=== PATIENT | female | born 2000 | race Caucasian/White ===

== ENCOUNTER 2019-11-11 13:46 | Emergency (ER) | payer MEDICAID, SELFPAY ==
[2019-11-11 14:22] VITALS: BP 119/81; PULSE 102; RESP 20; TEMP 36.9; O2SAT 100; BMI 19.7
--- NOTE | 2019-11-11 14:31 | HMH.EDUTC ---
[facility] [place]: Strep throat Disposition: Home, Self-Care Condition on Discharge: Good Instructions: Strep Throat (Alternative Therapy), DI for Strep Throat, Amoxicillin Additional Instructions: *Monitor Temp, Over the counter Motrin or Tylenol as directed/as needed Tylenol every 4 hours and Motrin every 6 hours (as long as your family doctor has told you that you can take it) for fever or pain. and straight to ER if unable to lower temp less than 101.0 after medication given *Warm salt water gargles may help to soothe the throat *Throat Lozenges *Warm fluids like tea with honey may help to soothe the throat *Sleep elevated *Humidifier/Vaporizer *Flonase 2 sprays in each nostril daily but be aware that it may take 2-3 days before you notice improvement *Bromfed may cause drowsiness. Know how it effects you (your child) before driving, caring for small child, or sending your child to school. Not other antihistamines/allergy medications while taking bromfed Your throat swab was sent for culture. Those results are typically sent to your primary care. Be sure to follow up in 2-3 days with your family doctor/primary care physician if no improvement so they can review those result and treat if necessary. If you don?t have a primary care doctor, I recommend you get one but in the mean time, you will have to return to a walk in clinic *If you did not take Penicillin shot or was unable to, start taking antibiotic immediately and make sure that you take it for the FULL length of time although you should start to feel better in 24-48 hours *change toothbrush and toothpaste 24-48 hours after starting to take antibiotics so you do not reinfect yourself Monitor Temp. Tylenol and/or Ibuprofen as needed. ER if fever is no less than 101 despite alternating Tylenol and Ibuprofen * Encourage fluids, water, Gatorade, powerade, pedialyte if infant/toddler/or child *Cold fluids, popsicles and ice cream may feel good on his throat Follow up IMMEDIATELY for new or worsening symptoms or no Noticeable improvement over the next 48-72 hours. 911 for difficulty breathing or swallowing Prescriptions: Amoxicillin [Amoxicillin 500mg Cap] 500 mg PO BID 10 Days #20 cap Transmission Status: Received by [id number] Referrals: Karen Alicea APRN [Primary Care Provider] - As needed Time of Disposition: 14:40 Medical Decision Making - [place] Inquiry Pt receiving controlled substance: No Mroro was queried for this patient: No Vital Signs: 11/11/19 14:22 11/11/19 14:49 Temperature 98.4 F 98.4 F Temperature Source Oral Pulse Rate 102 H Pulse Rate [Right Brachial] 102 H Respiratory Rate 20 20 Blood Pressure 119/81 Blood Pressure [Right Arm] 119/81 Blood Pressure Mean [Right Arm] 93 Blood Pressure Source [Right Arm] Automatic Cuff Blood Pressure Position [Right Arm] Sitting 02 Sat by Pulse Oximetry 100 Oxygen Delivery Method Room Air - Lab Data Lab results reviewed: Yes: I reviewed the patient's lab results. Lab Results 11/11/19 14:22: Strep Scn Rapid Clinic Positive [place] [facility] [place] General Stated complaint: sore throat runny nose unable to eat wants covid t Time Seen by Provider: 11/11/19 14:31 Mode of Arrival: Ambulatory Source of Information: Patient Limitations: No Limitations Description of Symptoms (Recalled from Triage Doc. by RN): PATIENT C/O RUNNY NOSE, COUGH, SORE THROAT SINCE YESTERDAY HEENT Symptoms (Recalled from RN notes): Yes Resp Symptoms (Recalled from RN notes): Yes Skin Symptoms (Recalled from RN notes): No MS Symptoms (Recalled from RN notes): No Functional Status (Recalled from RN notes): WNL - History of Present Illness Provider Complaint: Patient states that she has been having nasal congestion, runny nose, sore throat and not feeling well and wanted to get tested for COVID 19 States that symptoms started yesterday and has continued to get worse - Related Data Home Me
[2019-11-11 14:49] VITALS: BP 119/81; PULSE 102; RESP 20; TEMP 36.9; O2SAT 100
[2019-11-11 15:31] LABS: UTC Strep Screen (Rapid) Positive (Negative)
== END 2019-11-11 14:56 | disposition home or self-care (01) ==
PROVIDERS: Emergency Provider Nurse Practitioner; PCP Nurse Practitioner Family
DX: J02.0 Streptococcal pharyngitis (principal); Z20.828 Contact with and (suspected) exposure to other viral communicable diseases
CPT/HCPCS: 87880; 99202; U0003

== ENCOUNTER → 2020-06-16 13:06 | Outpatient (CLI) | payer OTHER, SELFPAY | PROVIDERS: Visit Provider Obstetrics & Gynecology | DX: R39.89 Other symptoms and signs involving the genitourinary system (principal) | CPT/HCPCS: 87086 ==

== ENCOUNTER → 2020-07-13 16:37 | Outpatient (CLI) | payer OTHER, SELFPAY ==
[2020-07-18 12:35] LABS: Neisseria gonorrhoeae, NAA Negative (Negative)
== END ==
PROVIDERS: Visit Provider Obstetrics & Gynecology
DX: Z86.19 Personal history of other infectious and parasitic diseases (principal)
CPT/HCPCS: 87491; 87591

== ENCOUNTER → 2021-11-19 13:05 | Outpatient (CLI) | payer OTHER, SELFPAY ==
--- NOTE | 2021-11-19 13:06 | US_ITS ---
FINAL REPORT CLINICAL HISTORY: painful coitus, female FINDINGS: Transvaginal sonographic images of the pelvis were obtained. The uterus is retroverted and measures 6.2 x 4.0 x 5.0 cm. The endometrium measures 0.31 cm, which is within normal limits. No uterine mass is identified. The right ovary measures 2.52 cm in length and left ovary measures 3.77 cm in length. There is a septated, anechoic focus in the left ovary measuring 3.0 x 1.8 cm likely due to cyst or follicle. Blood flow is identified to the ovaries bilaterally. There is no free fluid in the pelvis. IMPRESSION: Left ovarian cyst or follicle. Reviewed, Interpreted and Dictated by Duran Flores MD Transcribed by Vivian Jones Authenticated and [facility]
== END ==
PROVIDERS: PCP Nurse Practitioner Family; Visit Provider Obstetrics & Gynecology
DX: N94.10 Unspecified dyspareunia (principal)
CPT/HCPCS: 76830

== ENCOUNTER → 2021-11-30 13:50 | Outpatient (CLI) | payer OTHER, SELFPAY ==
[2021-11-30 21:09] LABS: Basophils % 0.8 % (0.1-2.0); Eosinophils # 0.1 K/mm3 (0.0-0.4); Eosinophils % 1.7 % (0.1-12.0); Hematocrit 44.5 % (37.0-47.0); Hemoglobin 14.1 g/dL (12.2-16.2); Lymphocytes # 1.4 K/mm3 (0.7-4.5); Lymphocytes % 29.6 % (10-50); Mean Corpuscular HGB Conc 31.6 g/dL (31.8-35.4); Mean Corpuscular Hemoglobin 27.8 pg (27.0-31.2); Mean Corpuscular Volume 87.9 fl (81-99); Mean Platelet Volume 9.7 fl (7.4-10.4); Monocytes # 0.2 K/mm3 (0.1-1.0); Monocytes % 4.9 % (1.7-9.3); Neutrophils # 2.9 K/mm3 (1.8-7.8); Neutrophils % 63.1 % (37.0-80.0); Platelet Count 224 K/mm3 (142-424); Red Blood Count 5.05 M/mm3 (4.20-5.40); White Blood Count 4.7 K/mm3 (4.8-10.8)
[2021-11-30 21:22] LABS: Alanine Aminotransferase 23 U/L (12-78); Albumin Level 4.3 g/dl (3.5-5.0); Albumin/Globulin Ratio 1.4 (1.1-1.8); Alkaline Phosphatase 53 U/L (38-126); Anion Gap 12.1 mEq/L (5-15); Aspartate Amino Transferase 28 U/L (14-36); Bilirubin,Total 0.4 mg/dl (0.2-1.3); Blood Urea Nitrogen 12 mg/dl (7-17); Calcium 9.8 mg/dl (8.4-10.2); Carbon Dioxide 26 mmol/L (22.0-30.0); Chloride 105 mmol/L (98-107); Estimated Glomerular Filt Rate 89 ml/min (>60); GFR (African American) 108 ML/MIN (>60); Globulin 3.1 g/dL (1.3-3.2); Glucose 92 mg/dl (74-100); Potassium 4.1 mmoL/L (3.5-5.1); Sodium 139 mmol/L (136-145); Total Protein,Serum 7.4 g/dl (6.3-8.2)
== END ==
PROVIDERS: Student in an Organized Health Care Education/Training Program; PCP Family Medicine; Visit Provider Family Medicine
DX: Z76.89 Persons encountering health services in other specified circumstances (principal)
CPT/HCPCS: 80053; 85025

== ENCOUNTER → 2022-11-25 23:06 | Outpatient (CLI) | payer OTHER, SELFPAY | PROVIDERS: PCP Nurse Practitioner Family; Visit Provider Nurse Practitioner Family | DX: J02.9 Acute pharyngitis, unspecified (principal) | CPT/HCPCS: 87070 ==

== ENCOUNTER 2023-02-26 17:43 | Emergency (ER) | payer OTHER, SELFPAY ==
[2023-02-26 18:50] VITALS: BP 127/83; PULSE 122; RESP 22; TEMP 38.2; O2SAT 100
--- NOTE | 2023-02-26 19:13 | EXP.UTC ---
Discharge Plan Disposition Patient Disposition: Home, Self-Care Condition: Good Prescriptions Prescriptions: No Action norethindrone-e.estradiol-iron [04/19 (28)] 1 mg-20 mcg (21)/75 mg (7) tablet 1 tab PO DAILY Qty: 84 4RF nitrofurantoin monohyd/m-cryst [Macrobid] 100 mg capsule 100 mg PO BID 7 Days Qty: 14 0RF Rx Instructions: must administer with a meal/food Referrals Follow up/Referrals: Provider,Referral, MD [Primary Care Provider] - See instructions Activity Restrictions/Add. Instructions Additional Instructions/Restrictions: *Monitor Temp, Over the counter Motrin or Tylenol as directed/as needed Tylenol every 4 hours and Motrin every 6 hours (as long as your family doctor has told you that you can take it) for fever or pain. and straight to ER if unable to lower temp less than 101.0 after medication given *Warm salt water gargles may help to soothe the throat *Throat Lozenges? *Warm fluids like tea with honey may help to soothe the throat? *Sleep elevated *Humidifier/Vaporizer Follow up IMMEDIATELY for new or worsening symptoms or no Noticeable improvement over the next 48-72 hours. 911 for difficulty breathing or swallowing You were tested for today for Upper Respiratory Panel with COVID19 your test result should be back in the next 24 hours You may check your results on the [facility] if you are positive for COVID you will need to quarantine for the next 5 days Clinical Impressions Clinical Impression: Viral syndrome Stand Alone Forms Stand Alone Forms: Work/School Release Instructions Patient Instructions: DI for Viral Syndrome, DI for COVID-19 (Suspected or Confirmed ) Discharge ED Provider: Kiki Anthony [facility] [place] General Stated complaint: fever, sore throat, congestion, cough Mode of Arrival: Ambulatory Source of Information: Patient Limitations: No Limitations Time Seen by Provider: 02/26/23 19:13 Description of Symptoms (Recalled from Triage Doc. by RN): PATIENT C/O FEVER, COUGH, SORE THROAT, BODY ACHES AND CONGESTION SINCE YESTERDAY. RECENTLY EXPOSED TO COVID. REPORTS A POSITIVE AT HOME COVID TEST BUT IS NEEDING PCR FOR WORK HEENT Symptoms (Recalled from RN notes): Yes Resp Symptoms (Recalled from RN notes): No Skin Symptoms (Recalled from RN notes): No MS Symptoms (Recalled from RN notes): No Functional Status (Recalled from RN notes): WNL History of Present Illness Provider Complaint: Patient states that she was around twin sister and several family members that recently tested positive for COVID states that yesterday she started with body aches, chills, fever, sore throat and cough States that she took a home COVID test and it was positive but she had to come in and get an official test for work Related Data Previous Rx's Medication Instructions Recorded norethindrone 1 mg-ethinyl 1 tab PO DAILY #84 tabs 12/09/22 estradiol 20 mcg (21)-iron 75 mg (7) tablet ( FE 04/19 (28)) nitrofurantoin 100 mg PO BID 7 days #14 caps 12/12/22 monohydrate/macrocrystals 100 mg capsule (Macrobid) Allergies Allergy/AdvReac Type Severity Reaction Status Date / Time No Known Allergies Allergy Verified 12/09/22 14:52 Worker's Comp Is this a Worker's Comp case?: No [facility] Disclaimer: The information contained in this section may have been updated after the patient was seen, as this information can be updated by other users. Medical History No active medical problems Surgical History Waller teeth removed Family History Grandmother Cancer Social History Smoking Status: Never smoker alcohol intake: never substance use type: denies use current occupational status: employed [employer]
[2023-02-26 19:20] VITALS: BP 127/83; PULSE 122; RESP 22; TEMP 38.2; O2SAT 100
== END 2023-02-26 19:22 | disposition home or self-care (01) ==
PROVIDERS: Emergency Provider Nurse Practitioner
DX: U07.1 COVID-19 (principal); R50.9 Fever, unspecified; R07.0 Pain in throat; R05.9 Cough, unspecified; R09.81 Nasal congestion
CPT/HCPCS: 87635; 99203; 99212; G0463

== ENCOUNTER 2024-01-05 16:43 | Outpatient (CLI) | payer SELFPAY ==
[2024-01-05 17:55] LABS: HCG,Quantitative 2082 mIU/ml (0-5.42)
[2024-01-07 12:20] LABS: Progesterone 15.1 ng/mL (.)
== END 2024-01-05 23:59 | disposition home or self-care (01) ==
LOC: LAB 16:44
PROVIDERS: Visit Provider Obstetrics & Gynecology
DX: Z32.01 Encounter for pregnancy test, result positive (principal)
CPT/HCPCS: 36415; 84144; 84702

== ENCOUNTER 2024-01-30 16:17 | Outpatient (CLI) | payer SELFPAY | END 2024-01-30 23:59 | disposition home or self-care (01) | LOC: LAB.DROPOF 16:17 | PROVIDERS: PCP Obstetrics & Gynecology; Visit Provider Obstetrics & Gynecology | DX: Z34.81 Encounter for supervision of other normal pregnancy, first trimester (principal) | CPT/HCPCS: 87086 ==

== ENCOUNTER 2024-02-24 13:49 | Outpatient (CLI) | payer OTHER, SELFPAY ==
[2024-02-24 14:29] LABS: Basophils % 0.4 % (0.1-2.0); Eosinophils # 0.1 K/mm3 (0.0-0.4); Eosinophils % 0.6 % (0.1-12.0); Hematocrit 38.2 % (37.0-47.0); Hemoglobin 13.6 g/dL (12.2-16.2); Lymphocytes # 1.1 K/mm3 (0.7-4.5); Lymphocytes % 11.3 % (10-50); Mean Corpuscular HGB Conc 35.6 g/dL (31.8-35.4); Mean Corpuscular Hemoglobin 30.1 pg (27.0-31.2); Mean Corpuscular Volume 84.6 fl (81-99); Mean Platelet Volume 7.7 fl (7.4-10.4); Monocytes # 0.5 K/mm3 (0.1-1.0); Monocytes % 4.5 % (1.7-9.3); Neutrophils # 8.3 K/mm3 (1.8-7.8); Neutrophils % 83.2 % (37.0-80.0); Platelet Count 196 K/mm3 (142-424); Red Blood Count 4.51 M/mm3 (4.20-5.40); Red Cell Distribution Width 13.3 % (11.5-17.5)
[2024-02-24 15:08] LABS: RPR W/RFX Titers Nonreactive (Nonreactive)
[2024-02-24 18:17] LABS: HIV (1&2) Antibody Rapid NONREACTIVE (NONREACTIVE)
[2024-02-26 05:10] LABS: HCV Ab Non Reactive (Non Reactive); Hepatitis B Surface Antigen Negative (Negative)
[2024-02-26 08:32] LABS: Rubella Antibodies, IgG 2.69 index (Immune >0.99)
== END 2024-02-24 23:59 | disposition home or self-care (01) ==
LOC: LAB 13:50
PROVIDERS: Visit Provider Obstetrics & Gynecology
DX: Z34.81 Encounter for supervision of other normal pregnancy, first trimester (principal)
CPT/HCPCS: 36415; 85025; 86592; 86762; 86803; 86850; 87340; 87389

== ENCOUNTER 2024-04-22 08:52 | Outpatient (CLI) | payer BC, SELFPAY ==
--- NOTE | 2024-04-22 08:53 | US_ITS ---
PROCEDURE: US OB /MATERNAL DETAIL CLINICAL INDICATION: 20 week anatomy scan COMPARISON: No exams were available for comparison FINDINGS: Transabdominal sonographic images of the pelvis were obtained. From her established due date she is 19 weeks 6 days. Single viable intrauterine gestation. Breech position. Placenta: Anteriorplacenta grade 1. There is an average amount of fluid. The cervix appears satisfactory. Closed and measuring 4.51 cm in length. Complete survey performed and was unremarkable on the submitted images as in PACS. No discrete anomalies identified on survey imaging by technologist. Active fetus. Three-vessel cord with satisfactory umbilical cord insertion. 4- chamber heart noted. Situs, aortic arch, LVOT, RVOT, three-vessel view appear normal. Survey of brain & ventricles Unremarkable. Cerebellum, thalamus, choroid plexus, cisterna magna appear normal. Face and neck survey unremarkable. Profile, nasion, lips and nose appeared normal. Diaphragm and chest views unremarkable. Abdomen: Both kidneys noted and unremarkable. Stomach and bladder noted and satisfactory. Spine: Survey of the spine satisfactory with no anomalies identified nor imaged. Cervical, thoracic, lower spine appear normal. Both arms and legs noted. Amniotic Fluid: Adequate. MVP 3.14 cm Measurements: Average ultrasound age 20weeks 1day. Estimated due date by ultrasound age 0609/08/2024. Estimated weight 337g BPD = 19weeks 4days OFD = HC = 20weeks AC = 20weeks 3days FL = 20weeks 1day Growth Percentile= 64 Heart Rate = 156bpm Cerebellum = 19weeks 4days Humerus = 20weeks 1day HC/AC is 1.15 CI is FL/BPD is 0.72 FL/AC is 0.21 IMPRESSION: 1. Viable fetus in the breech presentation with an anterior placenta grade 1. 2. The fluid is within normal limits with an MVP 3.14 cm. 3. Anatomical scan appears normal. 4. biometry is consistent with the dates. Dictated by: Wero Ann MD 04/22/2024 11:00 Wero Ann MD in OV 04/22/2024 11:00
== END 2024-04-22 23:59 | disposition home or self-care (01) ==
LOC: RAD 08:53
PROVIDERS: PCP Family Medicine; Visit Provider Obstetrics & Gynecology
DX: Z36.89 Encounter for other specified antenatal screening (principal); Z3A.19 19 weeks gestation of pregnancy
CPT/HCPCS: 76811

== ENCOUNTER 2024-06-18 10:05 | Outpatient (CLI) | payer BC, SELFPAY ==
[2024-06-18 11:50] LABS: Basophils % 0.1 % (0.1-2.0); Eosinophils # 0.1 K/mm3 (0.0-0.4); Eosinophils % 0.7 % (0.1-12.0); Hematocrit 33.5 % (37.0-47.0); Hemoglobin 11.2 g/dL (12.2-16.2); Lymphocytes # 1.1 K/mm3 (0.7-4.5); Lymphocytes % 16.5 % (10-50); Mean Corpuscular HGB Conc 33.4 g/dL (31.8-35.4); Mean Corpuscular Hemoglobin 29.4 pg (27.0-31.2); Mean Corpuscular Volume 87.9 fl (81-99); Mean Platelet Volume 10.1 fl (7.4-10.4); Monocytes # 0.4 K/mm3 (0.1-1.0); Monocytes % 5.6 % (1.7-9.3); Neutrophils # 5.2 K/mm3 (1.8-7.8); Neutrophils % 76.7 % (37.0-80.0); Platelet Count 148 K/mm3 (142-424); Red Blood Count 3.81 M/mm3 (4.20-5.40); Red Cell Distribution Width 13.2 % (11.5-17.5); White Blood Count 6.8 K/mm3 (4.8-10.8)
[2024-06-18 12:01] LABS: Glucose 1 Hour 111 mg/dL (74-100)
[2024-06-18 13:59] LABS: RPR W/RFX Titers Nonreactive (Nonreactive)
== END 2024-06-18 23:59 | disposition home or self-care (01) ==
LOC: LAB 10:06
PROVIDERS: PCP Family Medicine; Visit Provider Obstetrics & Gynecology
DX: Z34.83 Encounter for supervision of other normal pregnancy, third trimester (principal); Z3A.28 28 weeks gestation of pregnancy
CPT/HCPCS: 36415; 82947; 85025; 86592

== ENCOUNTER 2024-08-12 16:20 | Outpatient (CLI) | payer BC, SELFPAY | END 2024-08-12 23:59 | disposition home or self-care (01) | LOC: LAB.DROPOF 08-13 10:56 | PROVIDERS: PCP Obstetrics & Gynecology; Visit Provider Obstetrics & Gynecology | DX: O21.9 Vomiting of pregnancy, unspecified (principal) | CPT/HCPCS: 86403 ==

== ENCOUNTER 2024-08-20 20:37 | Outpatient (CLI) | payer BC, SELFPAY ==
[2024-08-20 20:45] VITALS: BMI 25.0
[2024-08-20 20:53] VITALS: BP 123/83; PULSE 108; RESP 16; TEMP 36.7; O2SAT 99; BMI 24.9
[2024-08-20 20:57] LABS: Appearance,Urine CLEAR (Clear); Bilirubin,Urine Negative (Negative); Blood, Urine Negative (Negative); Color,Urine YELLOW (Yellow); Glucose,Urine (UA) Negative (Negative); Ketones,Urine Negative (Negative); Leukocyte Esterase,Urine 2+ (Negative); Microscopic, Urine URINE MICROSCOPIC (MICROSCOPIC); Nitrate,Urine Negative (Negative); PH,Urine 6.5 (5.0-8.5); Protein,Urine Negative (Negative); Specific Gravity, Urine <= 1.005 (1.005-1.030); Urobilinogen,Urine 0.2 EU/dl (0.2)
[2024-08-20 21:32] LABS: Squamous Epithelial Cell,Urine 50-100 #/hpf (0-5); WBC,Urine 50-100 #/hpf (0-3)
[2024-08-20 21:33] LABS: Bacteria,Urine 4+ /lpf; Yeast,Urine Occasional /lpf
[2024-08-20] MEDS: DEXTROSE 5%-LACTATED RINGERS 1,000 ML 999 ML IV (21:55)
[2024-08-20 22:10] LABS: Basophils % 0.4 % (0.1-2.0); Eosinophils # 0.1 Kmm3 (0.0-0.4); Eosinophils % 0.8 % (0.1-12.0); Hematocrit 34.6 % (37.0-47.0); Hemoglobin 11.7 g/dL (12.2-16.2); Immature Granulocytes # 0.03 10^3uL; Immature Granulocytes % 0.4 %; Lymphocytes # 1.5 K/mm3 (0.7-4.5); Lymphocytes % 19.8 % (10-50); Mean Corpuscular HGB Conc 33.8 g/dL (31.8-35.4); Mean Corpuscular Hemoglobin 29.1 pg (27.0-31.2); Mean Corpuscular Volume 86.1 fl (81-99); Mean Platelet Volume 10.9 fl (7.4-10.4); Monocytes # 0.5 K/mm3 (0.1-1.0); Monocytes % 6.7 % (1.7-9.3); Neutrophils # 5.5 K/mm3 (1.8-7.8); Neutrophils % 71.9 % (37.0-80.0); Nucleated Red Blood Cells # 0 10^3/uL; Nucleated Red Blood Cells % 0 %; Platelet Count 154 K/mm3 (142-424); Red Blood Count 4.02 M/mm3 (4.20-5.40); Red Cell Distribution Width-SD 40.7 fL; White Blood Count 7.6 K/mm3 (4.8-10.8)
[2024-08-20 22:15] LABS: Alanine Aminotransferase 19 U/L (12-78); Albumin Level 3.7 g/dl (3.5-5.0); Albumin/Globulin Ratio 1.3 (1.1-1.8); Alkaline Phosphatase 107 U/L (38-126); Anion Gap 8.8 mEq/L (5-15); Aspartate Amino Transferase 27 U/L (14-36); Bilirubin,Total 0.3 mg/dl (0.2-1.3); Blood Urea Nitrogen 10 mg/dl (7-17); Calcium 9.2 mg/dl (8.4-10.2); Carbon Dioxide 24 mmol/L (22.0-30.0); Chloride 105 mmol/L (98-107); Creatinine Clearance Estimated 149 mL/min (50-200); Estimated Glomerular Filt Rate 121 ml/min (>60); GFR (African American) 146 ML/MIN (>60); Globulin 2.8 g/dL (1.3-3.2); Glucose 83 mg/dl (74-100); Potassium 3.8 mmoL/L (3.5-5.1); Sodium 134 mmol/L (136-145); Total Protein,Serum 6.5 g/dl (6.3-8.2)
== END 2024-08-20 23:30 | disposition home or self-care (01) ==
LOC: OBOUT 20:39 → OB 20:40
PROVIDERS: PCP Family Medicine; Visit Provider Nurse Practitioner Obstetrics & Gynecology
DX: Z34.83 Encounter for supervision of other normal pregnancy, third trimester (principal); Z3A.36 36 weeks gestation of pregnancy
CPT/HCPCS: 59025; 80053; 81001; 85025; 87086; 96360; 99212; G0463; J7121

== ENCOUNTER 2024-09-07 02:41 | Inpatient (IN) | payer BC, SELFPAY ==
[2024-09-07 00:46] VITALS: BMI 25.4
--- OUTSIDE RECORDS SUMMARY | 2024-09-07 00:46 | XMS_ITS | Data Portability ---
Author Organization [facility],, Main [place] [address] Assessment Encounter Date Assessment Date Assessment LastModified by Organization Details LastModified Time 02/27/2023 02/27/2023 Annual gynecological exam performed. Patient will come back in a year unless there are new symptoms. Patient evaluated for pelvic pain. History and exam indicate patient. Patient educated on treatment and goals of therapy. Discussed follow up and orders indicated below. malena Not available 02/28/2023 21:24:53 Plan of Treatment Reminders Order Date Submit Date Provider Last Modified By Organization Details Last Modified Time Details Appointments None recorded. Lab urinalysis , dipstick 2022 023 malena Main Office, [address], [place], [address], 4 14:08:55 test, urine 2022 023 malena Main Office, [address], [place], [address], 4 14:08:53 urinalysis , dipstick 2022 023 aclnicol Main Office, [address], [place], [address], 3 13:48:14 test, urine 2022 023 aclnicol Main Office, [address], [place], [address], 3 13:48:16 Referral None recorded. Procedures None recorded. Surgeries None recorded. Imaging None recorded. Medication Orders None recorded. Patient TargetsNo targets recorded. Patient Instructions Encounter Date Encounter Id Patient Instructions Last Modified By Organization Details Last Modified Time 03/18/2023 [id number] Discussed result s from ultrasound, questions answered and addressed. All areas reviewed. [email or web address] Not available 04/26/2023 14:08:03 Reason for Referral None Reported. Results Created Date Observation Date Name Description Value Unit Range Abnormal Flag Note LastModifiedBy Organization Detail LastModifiedTime 02/28/2003/01/2023 VAGIN ITIS PANEL trichomonas vaginalis, aptima (panther) NOT DETECT ED normal Trich omona s vagin ivelisse: DNA testi ng perfo rmed by Trans cript ion Media chen Ampli ficat ion (TMA) These resul ts shoul d be inter prete d in light of all clini shania and labor atory findi ngs. This assay is highl y accur ate, but rare false posit janie and negat janie resul ts may occur . Posit janie resul ts in low preva lence popul ation s may requi re re-ev aluat ion. A negat janie resul t does not precl ude a possi ble infec tion due to a speci men inade quacy or sampl ing error . Test perfo rmed by [facility], d/b/a Chau mckinney, [address], [place] [address] , Mich Evans ra, DO, Labor atory Direc tor. Gardn erell a vagin ivelisse, Lisbeth da speci es: Genom ic DNA is isola chen from patie nt speci mens by stand vern labor atory techn iques and ansley zed using custo m OpenA rray plate s, perfo rmed on the [employer] o 12K Flex Real Time PCR syste m. A posit janie resul t is provi ded for patho genic bacte ankur, virus and/o r funga l speci es based on detec tion of ampli ficat ion produ cts. Isha l vagin al jocelyn resul ts of Isha l or [place] chen are deter mined by calcu latin g the ratio of the organ ism to the total bacte ankur prese nt in the speci men, and jose ring that ratio to a PathG roup patie nt popul ation . Overa ll resul ts of Isha l, Borde rline and Abnor mal are deter mined using a proba bilit y model which was devel oped by an exten sive ansley sis and integ ratio n of clini shania thres holds for marke r organ isms on a large set of sympt omati c & asymp tomat ic speci mens. Patie nt popul ation s with diffe rent demog raphi cs from the PathG roup model popul ation may have diffe rent indic ator organ isms with diffe rent relat janie ratio s, which would influ ence the final resul ts. Resul ts shoul d be inter prete d in the edward xt of all clini shania and labor atory findi ngs. The test was devel oped and its perfo rmanc e kieran cteri stics deter mined by [employer], [facility] d/b/a [facility]. It has not been clear ed or appro vitor by the U.S. Food and Drug Admin istra tion. The FDA has deter mined that such clear ance or appro jn is not neces humberto. Perti nent refer ence inter vals are avail able from the labor atory on reque st. Test( s) perfo rmed by [facility] [employer], Pacinian, d/b/a Path rou, [address] [place] [address] , Mich Evans ra, DO, Labor atory Direc tor. Not Available [facility] ([facility]) [address] [facility] [address], [place], [address], 03/03/2023 16:28:19 02/28/20 23 03/03/2023 VAGIN ITIS PANEL lalitha sp. Not Detect ed normal Trich omona s vagin ivelisse: DNA testi ng perfo rmed by Trans cript ion Media chen Ampli ficat ion (TMA) These resul ts shoul d be inter prete d in light of all clini shania and labor atory findi ngs. This assay is highl y accur ate, but rare false posit janie and negat janie resul ts may occur . Posit janie resul ts in low preva lence popul ation s may requi re re-ev aluat ion. A negat janie resul t does not precl ude a possi ble infec tion due to a speci men inade quacy or sampl ing error . Test perfo rmed by [facility], d/b/a [facility], [address], [place] [address] , Mich Evans ra, DO, Labor atory Direc tor. Tyler yoder a vagin ivelisse, Lisbeth da speci es: Genom ic DNA is isola chen from patie nt speci mens by stand vern labor atory techn iques and ansley zed using custo m OpenA rray plate s, perfo rmed on the Quant Stud[employer] o 12K Flex Real Time PCR syste m. A posit janie resul t is provi ded for patho genic bacte ankur, virus and/o r funga l speci es based on detec tion of ampli ficat ion produ cts. Isha l vagin al jocelyn resul ts of Isha l or [place] chen are deter mined by calcu latin g the ratio of the organ ism to the total bacte ankur prese nt in the speci men, and jose ring that ratio to a PathG roup patie nt popul ation . Overa ll resul ts of Isha l, Borde rline and Abnor mal are deter mined using a proba bilit y model which was devel oped by an exten sive ansley sis and integ ratio n of clini shania thres holds for marke r organ isms on a large set of sympt omati c & asymp tomat ic speci mens. Patie nt popul ation s with diffe rent demog raphi cs from the PathG roup model popul ation may have diffe rent indic ator organ isms with diffe rent relat janie ratio s, which would influ ence the final resul ts. Resul ts shoul d be inter prete d in the edward xt of all clini shania and labor atory findi ngs. The test was devel oped and its perfo rmanc e kieran cteri stics deter mined by [employer], [facility] d/b/a Path [facility]. It has not been clear ed or appro vitor by the U.S. Food and Drug Admin istra tion. The FDA has deter mined that such clear ance or appro jn is not neces humberto. Perti nent refer ence inter vals are avail able from the labor atory on reque st. Test( s) perfo rmed by [employer], Pac[place], d/b/a [facility]rest[facility], [address], [place] [address] , Mich Evans ra, DO, Labor atory Direc tor. Not Available [facility] ([facility]) [address], [place], [address], 03/03/2023 16:28:19 02/28/20 23 03/03/2023 VAGIN ITIS PANEL gardnerella vaginalis Detect ed abnormal Trich omona s vagin ivelisse: DNA testi ng perfo rmed by Trans cript ion Media chen Ampli ficat ion (TMA) These resul ts shoul d be inter prete d in light of all clini shania and labor atory findi ngs. This assay is highl y accur ate, but rare false posit janie and negat janie resul ts may occur . Posit janie resul ts in low preva lence popul ation s may requi re re-ev aluat ion. A negat janie resul t does not precl ude a possi ble infec tion due to a speci men inade quacy or sampl ing error . Test perfo rmed by [employer], Pacinian, d/b/a [facility]rest[facility] roup, [address], [place] [address] , Mich Evans ra, DO, Labor atory Direc tor. Tyler erell a vagin ivelisse, Lisbeth da speci es: Genom ic DNA is isola chen from patie nt speci mens by stand vern labor atory techn iques and ansley zed using custo m OpenA rray plate s, perfo rmed on the Quant Studi o 12K Flex Real Time PCR syste m. A posit janie resul t is provi ded for patho genic bacte ankur, virus and/o r funga l speci es based on detec tion of ampli ficat ion produ cts. Isha l vagin al jocelyn resul ts of Isha l or [place] chen are deter mined by calcu latin g the ratio of the organ ism to the total bacte ankur prese nt in the speci men, and jose ring that ratio to a PathG roup patie nt popul ation . Overa ll resul ts of Isha l, Borde rline and Abnor mal are deter mined using a proba bilit y model which was devel oped by an exten sive ansley sis and integ ratio n of clini shania thres holds for marke r organ isms on a large set of sympt omati c & asymp tomat ic speci mens. Patie nt popul ation s with diffe rent demog raphi cs from the PathG roup model popul ation may have diffe rent indic ator organ isms with diffe rent relat janie ratio s, which would influ ence the final resul ts. Resul ts shoul d be inter prete d in the edward xt of all clini shania and labor atory findi ngs. The test was devel oped and its perfo rmanc e kieran cteri stics deter mined by [facility], [facility] d/b/a [facility] roup. It has not been clear ed or appro vitor by the U.S. Food and Drug Admin istra tion. The FDA has deter mined that such clear ance or appro jn is not neces humberto. Perti nent refer ence inter vals are avail able from the labor atory on reque st. Test( s) perfo rmed by [facility], d/b/a PathG roubainka, [address] [place] [address] , Mich Evans ra, , Labor atory Direc tor. Not Available [facility] ([facility]) [address], [place], [address], 03/03/2023 16:28:19 02/28/20 23 03/01/2023 MYCOP LASMA GENIT ALIUM mycoplasma genitalium Not Detect ed normal The Aptim a Mycop lasma genit alium assay is an in vitro nucle ic acid ampli ficat ion test (NAAT ) for the quali tativ e detec tion of ribos omal RNA (rRNA ) from Mycop lasma genit alium on the fully autom ated Panth er syste m. It is inten ded for use as an aid in the diagn osis of M. genit alium uroge nital infec tions in male and femal e patie nts suspe cted of M. genit alium infec tion. This test is highl y sensi tive and speci fic, but rare false posit janie and false negat janie resul ts may occur . Resul ts of this test shoul d be inter prete d in conju nctio n with clini shania and labor atory findi ngs. This labor atory is certi fied under the Clini shania Labor atory Impro vemen t Amend ments of 1987( CLIA) as quali fied to perfo rm high compl exity clini shania labor atory testi ng. Test perfo rmed by [facility], d/b/a Chau mckinney, [address] [place] [address] , Dr. Mich Evans ra, , Medic al Labor atory Direc tor. Not Available [facility] ([facility]) [address], [place], [address], 03/03/2023 16:28:20 02/28/20 23 03/01/2023 CHLAM YDIA TRACH OMATI S chlamydia trachomatis, aptima NOT DETECT ED normal DNA testi ng perfo rmed by Trans cript ion Media chen Ampli ficat ion (TMA) . Resul ts shoul d be inter prete d in conju nctio n with patie nt histo ry and clini shania prese ntati on. This assay is highl y accur ate, but rare false posit janie and negat janie resul ts may occur . Posit janie resul ts in low preva lence popul ation s may requi re re-ev aluat ion. A negat janie resul t does not precl ude a possi ble infec tion due to a speci men inade quacy or sampl ing error . Test perfo rmed by [employer], Pacinian d/b/a Yanelis faye, [address], [place] [address] , Mich Evans ra, DO, Labor atory [facility], [place]# [id number] Not Available [facility] ([facility]) [address] [facility] [address], [place], [address], 03/03/2023 16:28:20 02/28/20 23 03/01/2023 NEISS ERIA GONOR RHOEA E neisseria gonorrhoeae, aptima NOT DETECT ED normal DNA testi ng perfo rmed by Trans cript ion Media chen Ampli ficat ion (TMA) . Resul ts shoul d be inter prete d in conju nctio n with patie nt histo ry and clini shania prese ntati on. This assay is highl y accur ate, but rare false posit janie and negat janie resul ts may occur . Posit janie resul ts in low preva lence popul ation s may requi re re-ev aluat ion. A negat janie resul t does not precl ude a possi ble infec tion due to a speci men inade quacy or sampl ing error . Test perfo rmed by [facility], [facility] d/b/a PathG roup, [address], [place] [address] , Mich Evans ra, DO, Labor atory [facility], [facility]# [id number] Not Available [facility] ([facility]) [address], [place], [address], 03/03/2023 16:28:21 02/28/20 23 02/27/2023 urina lysis , dipst ick Leukocytes - Not Available Main Of fice [address], [place], [address], 02/27/2023 15:12:07 02/28/20 23 02/27/2023 urina lysis , dipst ick Nitrite negati ve Not Available Main Office [address], [place], [address], 02/27/2023 15:12:07 02/28/20 23 02/27/2023 urina lysis , dipst ick Urobilinogen - Not Available Main Office [address], [place], [address], 02/27/2023 15:12:07 02/28/20 23 02/27/2023 urina lysis , dipst ick Protein 0.3 Not Available Main Offic e [address], [place], [address], 02/27/2023 15:12:07 02/28/20 23 02/27/2023 urina lysis , dipst ick pH 6.0 Not Available Main Offic e [address], [place], [address], 02/27/2023 15:12:07 02/28/20 23 02/27/2023 urina lysis , dipst ick Blood - Not Available Main Offic e [address], [place], [address], 02/27/2023 15:12:07 02/28/20 23 02/27/2023 urina lysis , dipst ick Specific Mccaskill 1.005 Not Available Main O ffice [address], [place], [address], 02/27/2023 15:12:07 02/28/20 23 02/27/2023 urina lysis , dipst ick Ketone - Not Available Main Offic e [address], [place], [address], 02/27/2023 15:12:07 02/28/20 23 02/27/2023 urina lysis , dipst ick Bilirubin - Not Available Main Off ice [address], [place], [address], 02/27/2023 15:12:07 02/28/20 23 02/27/2023 pregn john test, urine HCG negati ve Not Available Main Office [address], [place], [address], 02/27/2023 15:12:20 Result Notes None recorded. Procedures Surgical History Date Name Laterality Status Provider Name and Address Organization Details Recorded Time 12/09/2022 Date of Last Pap Smear completed [facility], 02/27/2023 15:10:28 Imaging Results None recorded. Procedure Notes None recorded. Medical Equipment None Reported. Medications Name Sig Start Date Stop Date Status Note LastModified by Organization Details LastModified Time metronidazole 500 mg tablet Take 1 tablet every 12 hours by oral route for 7 days. active Not Available Not Available No t Available nitrofurantoin monohydrate/mac rocrystals 100 mg capsule TAKE 1 CAPSULE BY MOUTH TWICE DAILY WITH A MEAL FOR 7 DAYS active Not Available Not Available No t Available Erin Fe 04/19 (28) 1 mg-20 mcg (21)/75 mg (7) tablet TAKE 1 TABLET BY MOUTH ONCE DAILY active Not Available Not Available No t Available Vitals Date Recorded Body height Body mass index (BMI) Body weight Heart rate Body temperature Systolic blood pressure Diastolic blood pressure Provider Name and Address Organization Details Last Updated DateTime 3 162.56 cm 19.7 kg/m2 92828.1 2 g 122 /min 97.8 [degF] 119 mm[Hg] 85 mm[Hg] Jono Wright [facility], 3 15:05:27 Date Recorded Body height Body mass index (BMI) Body weight Heart rate Body temperature Systolic blood pressure Diastolic blood pressure Provider Name and Address Organization Details Last Updated DateTime 3 162.56 cm 20.1 kg/m2 30555.3 1 g 96 /min 97.1 [degF] 105 mm[Hg] 78 mm[Hg] Bridgette Gonzalez [facility], 3 11:49:18 Social History Question Answer Notes LastModified by Organizat ion Details LastModified Time Tobacco Smoking Status Never Smoker Jono Jack [facility], 02/27/2023 15:08:20 Do You Have An Advance Directive? No [email or web address] Information n ot available 02/27/2023 Are You Currently Sexually Active With Anyone Who Has Traveled (within The Last 12 Weeks) To A Zika-affected Area? No [email or web address] Information not available 02/27/2023 Do You Wear A Helmet When Biking? Yes [email or web address] Information not available 02/27/2023 Are You Blind Or Do You Have Difficulty Seeing? No [email or web address] Information n ot available 02/27/2023 Is Blood Transfusion Acceptable In An Emergency? Yes Information not available 02/27/2023 What Is Your Level Of Caffeine Consumption? None Information not available 02/27/2023 In The 14 Days Before Symptom Onset, Have You Had Close Contact With A Laboratory-confirm ed COVID-19 While That Case Was Ill? No [email or web address] Information n ot available 02/27/2023 In The 14 Days Before Symptom Onset, Have You Had Close Contact With A Person Who Is Under Investigation For COVID-19 While That Person Was Ill? No Information not available 02/27/2023 Have You Been To An Area Known To Be High Risk For COVID-19? No [email or web address] Information not available 02/27/2023 Are You Deaf Or Do You Have Serious Difficulty Hearing? No [id number] Information not available 02/27/2023 What Type Of Diet Are You Following? REGULAR [email or web address] Information n ot available 02/27/2023 Have You Processed Blood Or Body Fluids From An Ebola Virus Disease Patient Without Appropriate PPE? No [email or web address] Information not available 02/27/2023 Do You Reside In Or Have You Traveled To An Area Where Ebola Virus Transmission Is Active? No [email or web address] Information not available 02/27/2023 What Is The Highest Grade Or Level Of School You Have Completed Or The Highest Degree You Have Received? [id number] [email or web address] Information not available 02/27/2023 Have There Been Any Changes To Your Family Or Social Situation? No [email or web address] Information no t available 02/27/2023 Are There Any Guns Present In Your Home? No [email or web address] Information not available 02/27/2023 Have You Recently Or Are You Planning To Travel To An Area With Zika Virus? No [email or web address] Information not available 02/27/2023 Do You Use Insect Repellent Routinely? No [email or web address] Information not available 02/27/2023 Do You Have A Medical Power Of Meter Repairer? No [email or web address] Information not available 02/27/2023 How Many Children Do You Have? 0 [email or web address] Information not available 02/27/2023 Do You Have Any Pets? Yes [email or web address] Information not available 02/27/2023 Do You Use Protection During Sex? No [email or web address] Information not available 02/27/2023 What Is Your Relationship Status? Single Information not available 02/27/2023 Do You Use Your Seat Belt Or Car Seat Routinely? Yes [email or web address] Information not available 02/27/2023 Are You Sexually Active? Yes [email or web address] Information not available 02/27/2023 Do You Have Smoke And Carbon Monoxide Detectors In Your Home? Yes [email or web address] Information not available 02/27/2023 Are You Passively Exposed To Smoke? Yes [email or web address] Information no t available 02/27/2023 Are There Any Smokers In Your House? Yes [email or web address] Information not available 02/27/2023 Do You Use Sunscreen Routinely? Yes [email or web address] Information not available 02/27/2023 Do You Have Difficulty Walking Or Climbing Stairs? No [email or web address] Information not available 02/27/2023 Sex: Unknown Functional Status Question Answer Note LastModified by Organizat ion Details LastModified Time Do you use any illicit or recreational drugs? No [email or web address] Information not available 02/27/2023 What is your level of alcohol consumption? Occasional [email or web address] Information not available 02/27/2023 Are you currently employed? Yes [email or web address] Information not available 02/27/2023 Do you have transportation difficulties? No [email or web address] Information not available 02/27/2023 Are you able to walk? YESWOREST [email or web address] Information not available 02/27/2023 Do you have difficulty doing errands alone? No [email or web address] Information not available 02/27/2023 Are you able to care for yourself? Yes [email or web address] Information n ot available 02/27/2023 Do you have difficulty dressing or bathing? No Information not available 02/27/2023 What is your exercise level? None [email or web address] Information not available 02/27/2023 Mental Status Question Answer Note LastModified by Organizat ion Details LastModified Time Do you feel stressed (tense, restless, nervous, or anxious, or unable to sleep at night)? [id number] [email or web address] Information not available 02/27/2023 Do you have difficulty concentrating, remembering or making decisions? Yes [email or web address] Information no t available 02/27/2023 Family History Relationship Description Onset Age of this Age Resolved Age Notes LastModified by Organization Details LastModified Time Paternal Grandmother Arthritis [email or web address] Not available 14:59:36 Father Arthritis [email or web address] Not availabl e 02/27/2023 14:59:46 Paternal Grandfather Heart disease [email or web address] Not available 2022 15:00:03 Medical History No medical history recorded. Gynecological History Statement/Question Response Abnormal Pap N Flow Moderate Date of LMP 02/18/2023 On BCP's at Conception? Y STIs/STDs Yes HPV Vaccine N Duration of Flow (days) 3 Age at Menarche 10 Current Control Method BCPs Frequency of Cycle (Q days) 28 Sexually Active? Y Menses Monthly Y Date of Last Pap Smear 12/09/2022 Sexual Problems? Y LMP Definite Obstetrics History GPAL:G 0 P 0 0 0 0 Past Encounters Encounter ID Performer Location Encounter Start Date Encounter Closed Date Diagnosis/Indication Diagnosis SNOMED-CT Code Diagnosis ICD10 Code Diagnosis Note [id number] Stevo Porter DO Main Office [address] [place] [phone] 02/27/2023 14:19:15 02/27/2023 16:08:09 Deep pain on intercourse 134587522 N94.12 Pain in pelvis 73037964 R10.2 cx/vag panel u/s ordered Venereal d isease screening 403054980 Z11.3 Vaginal di scharge symptom 096379408 N89.8 [id number] Stevo Porter DO Main Office [address] [place] [address] 03/18/2023 11:46:21 03/18/2023 12:57:41 Large ovary 69537905 N83.8 Pain in pelvis 21933929 R10.2 Health Concerns Section Related Observation LastModified by Organization Detai ls LastModified Time None Recorded Concern Status LastModified by Organization Details LastModified Time None Recorded Advance Directives Directive N: Payers Encounter Date Sequence Insurance Name Policy Number Policy Orantes Covered Member ID Orantes Member ID Guarantor Name 02/27/2023 1 [employer] [facility] (MEDICAID HMO) Chanelle Gamez [id number] Gamez 03/18/2023 1 [employer] [facility] (MEDICAID HMO) Chanelle Gamez [id number] Chanelle Gamez Notes Date Note Type Note Provider Name and Address Organization Details Recorded Time 02/27/2023 text/html Pelvic Pain/PressureRepor chen bypatient.Location :[facility] Quality:pressure; pain; intermittent; stabbing Severity:severe Duration:several years Onset/Timing:inter mittent episodes lasting: Context:prior history of STDs Alleviating Factors:none Aggravating Factors:sex Associated Symptoms:no abdominal pain; no back pain; no chills; no constipation; no diarrhea; no pain with urination; no nausea; no vomiting; no incontinence; no fever; no feelings of urgency; no urge incontinence severe pain with intercourse, not every time, but frequently for the past 4-5 years. (feels like a really back period cramp, possibly what labor would feel like). feels like deep pain. Is on control pills. Periods are painful on the first day. sometimes has nonmenstrual pelvic pain. sometimes spotting in between periods. sometimes bleeding after intercourse.Some vaginal discharge, yellow in color. [place] was told she had BV, was given antibiotics. No itching or irritation. Stevo Porter, DO [address] [address], [place], [address], [facility], 04/07/2023 10:05:19 OBGyn Episode No OBEpisode recorded.
[2024-09-07 00:52] VITALS: BP 123/85; PULSE 95; RESP 18; TEMP 37; O2SAT 98; BMI 25.4
[2024-09-07 00:59] LABS: Microscopic, Urine URINE MICROSCOPIC (MICROSCOPIC)
[2024-09-07 01:07] LABS: Appearance,Urine CLEAR (Clear); Bilirubin,Urine Negative (Negative); Blood, Urine 3+ (Negative); Color,Urine YELLOW (Yellow); Glucose,Urine (UA) Negative (Negative); Ketones,Urine Negative (Negative); Leukocyte Esterase,Urine TRACE (Negative); Nitrate,Urine Negative (Negative); Protein,Urine Negative (Negative); Urobilinogen,Urine 0.2 EU/dl (0.2)
[2024-09-07 01:19] LABS: Bacteria,Urine 1+ /lpf; RBC,Urine 20-50 #/hpf (0-3)
[2024-09-07] MEDS: DEXTROSE 5%-LACTATED RINGERS 1,000 ML 125 ML IV ×2 (03:00→11:16)
[2024-09-07 03:31] LABS: Basophils % 0.3 % (0.1-2.0); Eosinophils # 0.1 Kmm3 (0.0-0.4); Eosinophils % 0.8 % (0.1-12.0); Hematocrit 38.3 % (37.0-47.0); Hemoglobin 12.9 g/dL (12.2-16.2); Immature Granulocytes # 0.03 10^3uL; Immature Granulocytes % 0.3 %; Lymphocytes # 1.7 K/mm3 (0.7-4.5); Lymphocytes % 19.3 % (10-50); Mean Corpuscular HGB Conc 33.7 g/dL (31.8-35.4); Mean Corpuscular Hemoglobin 28.7 pg (27.0-31.2); Mean Corpuscular Volume 85.3 fl (81-99); Mean Platelet Volume 10.8 fl (7.4-10.4); Monocytes # 0.5 K/mm3 (0.1-1.0); Monocytes % 5.4 % (1.7-9.3); Neutrophils # 6.7 K/mm3 (1.8-7.8); Neutrophils % 73.9 % (37.0-80.0); Nucleated Red Blood Cells # 0 10^3/uL; Nucleated Red Blood Cells % 0 %; Platelet Count 130 K/mm3 (142-424); Red Blood Count 4.49 M/mm3 (4.20-5.40); Red Cell Distribution Width 13.2 % (11.5-17.5); Red Cell Distribution Width-SD 41.1 fL
[2024-09-07] MEDS: LACTATED RINGERS 1000ML 1,000 ML 500 ML IV (05:10)
--- NOTE | 2024-09-07 06:47 | P.PNANES_ITS ---
[facility] Disclaimer: The information contained in this section may have been updated after the patient was seen, as this information can be updated by other users. Medical History Nausea/vomiting in History of chlamydia Surgical History [place] teeth removed Family History Grandmother Cancer Social History Smoking Status: Never smoker alcohol intake: never substance use type: denies use current occupational status: employed Travel in the last 8 weeks?: None household members: significant other housing: house Have you lived/traveled outside US in past 30 days?: No Contact w/someone who lives/traveled outside US past 30 days?: No Exposure to someone with infectious disease in past 14 days?: No Do you have a fever (greater than 100.4 F or 38 C)?: No Have you tested positive for COVID-19?: No Exposed to someone with COVID-19 in past 14 days?: No Do you have a sore throat?: No Do you have a cough?: No Do you have any weakness?: No Do you have any diarrhea?: No Are you experiencing any unusual bleeding?: No Do you have any muscle aches/pain?: No Do you have any abdominal pain?: No Are you experiencing loss of taste or smell?: No [facility] Anesthesia Checklist Patient Identification Patient Identification: Arm Band Structural Data Admitted From: Inpatient Planned Operative Procedure/s: Labor Epidural Consent for Planned Operative Procedure(s) Verified: Yes Verified Documents: Surgical Consent and History and Physical NPO Status Verified Time NPO: 00:00 Additional verifications Anesthesia Reactions: No Airway Assessment Mallampati Score:: Class II C-Spine Mobility Assessed: Yes TMJ Mobility Assessed: Yes Dentition: Good Dentition Neurological Assessment Level of Consciousness: Awake, Alert and Appropriate Anesthesia Plan Anesthesia Risk discussed: Yes Anesthesia Plan: Verified ASA Class: II Anesthesia Type: Epidural
--- NOTE | 2024-09-07 07:44 | P.CONPHA_ITS ---
Pharmacy Intervention Comments: MEDICATION RECONCILIATION COMPLETED ON PATIENT USING EXTERNAL FILL HISTORY FROM PHARMACY AND LIST FROM [facility]PERATOR OFFICE. -BEVERLY LEACHD
--- NOTE | 2024-09-07 07:44 | HMH.PHAINT1 ---
Pharmacy Intervention Comments: MEDICATION RECONCILIATION COMPLETED ON PATIENT USING EXTERNAL FILL HISTORY FROM PHARMACY AND LIST FROM [facility] OFFICE. -BEVERLY LEACHD
--- NOTE | 2024-09-07 08:50 | EXP.OB.APHP ---
OB - H&P: HPI Antepartum History of Present Illness Chief complaint: Vaginal bleeding, contractions History of present illness: Ms Chanelle Gamez is a 24 yo at 39w4d who presents to [facility] L&D with complaint of vaginal bleeding and contractions after intercourse. Vaginal bleeding started around 2230 last night. Upon arrival to L&D SVE /-2. She was monitored for an hour and repeat SVE /-2. Contractions were regular, every 2-4 minutes. GBS negative. She has had good care. She reports baby is very active. History of Present Criteria for establishing EDC:: LMP confirmed by 1st trimester US care: good care Ultrasounds: normal mid trimester US Obstetrical complications: none Medical complications: none Labs Blood type: A (+) positive Rubella: immune RPR/VDRL: nonreactive GBS status: negative HBsAG: negative [facility] Disclaimer: The information contained in this section may have been updated after the patient was seen, as this information can be updated by other users. Medical History (Updated 09/07/24 @ 11:54 by Sari Summers DO) Active labor Nausea/vomiting in History of chlamydia Surgical History [place] teeth removed Family History Grandmother Cancer Social History Smoking Status: Never smoker alcohol intake: never substance use type: denies use current occupational status: employed Travel in the last 8 weeks?: None household members: significant other housing: house Have you lived/traveled outside US in past 30 days?: No Contact w/someone who lives/traveled outside US past 30 days?: No Exposure to someone with infectious disease in past 14 days?: No Do you have a fever (greater than 100.4 F or 38 C)?: No Have you tested positive for COVID-19?: No Exposed to someone with COVID-19 in past 14 days?: No Do you have a sore throat?: No Do you have a cough?: No Do you have any weakness?: No Do you have any diarrhea?: No Are you experiencing any unusual bleeding?: No Do you have any muscle aches/pain?: No Do you have any abdominal pain?: No Are you experiencing loss of taste or smell?: No Other Medical History Have you received the Flu Vaccine for this season: No Have you received the Pneumonia Vaccine: No Review of Systems Review of Systems Review of systems:: pertinent systems reviewed and negative unless documented below *Genitourinary Comments: + vaginal bleeding and contractions Meds Home Medications and Allergies Home Medications ?Medication ?Instructions ?Recorded ?Confirmed ?Type vits no.126-ferrous fum 1 tab PO DAILY 01/30/24 09/07/24 History 28 mg iron-folic acid 800 mcg tablet (Classic ) famotidine 20 mg tablet 20 mg PO DAILY 07/15/24 09/07/24 History New Prescriptions to Start Prescriptions: Allergies Allergy/AdvReac Type Severity Reaction Status Date / Time No Known Allergies Allergy Verified 08/31/24 15:59 OB - H&P: Exam Physical Exam Vital signs: Temp Pulse Resp BP Pulse Ox O2 Del Method 98.6 F 95 H 18 123/85 98 Room Air 09/07/24 00:52 09/07/24 00:52 09/07/24 00:52 09/07/24 00:52 09/07/24 00:52 09/07/24 00:52 Constitutional no acute distress and cooperative Routine HEENT Exam Head: Present normocephalic and atraumatic Eye: Absent conjunctivae pink ENT: Present mucous membranes moist Routine Neck Exam Present full ROM Routine Respiratory Exam Present CTA bilaterally and normal respiratory effort Routine Cardiovascular Exam Present RRR Routine Abdominal Exam Present soft (Gravid); Absent tenderness Routine Rectal Exam Patient deferred: visual exam Routine Exam External: Present normal urethra appearance; Absent erythema, swelling, tenderness, lesions, lacerations or vulvar erythema Routine Extremities Exam Present full ROM; Absent edema or calf tenderness Routine Neurological Exam Present alert, moving all extremities and normal speech Routine Psychiatric Exam Present normal affect and cooperative Detailed Labor and Delivery Exam Dilation (cm): 6 Effacement (%): 80 Cervix position: mid station: -2 Consistency: soft Membranes: artificially ruptured Amniotic fluid: clear Baseline heart rate: 130 monitor accelerations: Present monitor decelerations: None [facility] variability: Moderate (11-25) Contraction frequency (min): 5 Tachysystole: No OB - Results Labs Labs: Short CBC 09/07/24 Range/Units 03:07 WBC 9.0 (4.8-10.8) K/mm3 Hgb 12.9 (12.2-16.2) g/dL Hct 38.3 (37.0-47.0) % Plt Count 130 L (142-424) K/mm3 Urine 09/07/24 Range/Units 00:48 Urine Color Yellow (Yellow) Urine Appearance Clear (Clear) Urine pH 7.0 (5.0-8.5) Ur Specific [place] 1.010 (1.005-1.030) Urine Protein Negative (Negative) Urine Glucose (UA) Negative (Negative) OB - A/P Antepartum (1) Active labor: Status: Acute Additional Plan Planning to breastfeed?: Yes Additional Information:: Admit to L&D for active labor Close monitoring GBS negative Anticipate spontaneous vaginal delivery
[2024-09-07 12:22] LABS: RPR W/RFX Titers Nonreactive (Nonreactive)
[2024-09-07] MEDS: OXYTOCIN/RINGERS LACTATE 30 UNITS/500 ML BAG 40 UNITS IV (15:55)
[2024-09-07] MEDS: IBUPROFEN 400 MG TABLET 800 MG PO (17:00)
[2024-09-07] MEDS: ACETAMINOPHEN 500MG TAB 1000 MG PO ×2 (17:00→23:06)
--- NOTE | 2024-09-07 17:16 | P.PCN_ITS ---
Delivery Note Delivery Date:: 09/07/24 Delivery Time:: 15:53 Anesthesia Type: Epidural Was labor medically induced?: No Induction method: none Gestational age (weeks): 39 Infant delivered prior to 39 weeks?: No Justification for early elective delivery:: Active Labor Gender: Female at 1 minute: 6 at 5 minutes: 8 LAC or MLE?: MLE Delivery Procedure:: Mom complete with epidural. Pushed for approximately 1 hr 45 minutes. Midline e pisiotomy performed for maternal exhaustion and tight perineal band. Head delivered spontaneously over MLE in OA position. Nuchal cord x 1 reduced at perineum. Anterior shoulder delivered with gentle downward pressure. Posterior shoulder and remainder of body delivered spontaneously. Baby placed on maternal abdomen, mouth and nares bulb suctioned, warmed/dried and stimulated. Baby was covered with meconium and not crying. Delayed cord clamping was performed for 30 seconds. Cord was clamped and cut by father of baby. Baby was handed to awaiting respiratory staff and Dr. Oneill. Cord blood was obtained. Placenta delivered spontaneously and intact. Placenta will be sent to pathology for review. Midline episiotomy was repaired with 3-0 Vicryl. Hemostasis noted. Mom and baby were doing well after delivery. Live female baby (baby's name is Huong) APGARs 6 (1 min), 8 (5 min) EBL 200 mL Placental Delivery Description: Spontaneous
[2024-09-07] MEDS: BENZOCAINE-MENTHOL SPRAY 56GM CAN TP (18:31)
[2024-09-07] MEDS: WITCH HAZEL 40 PADS/BOX 1 EACH TP (18:32)
[2024-09-07 19:37] VITALS: BP 118/77; PULSE 80; RESP 16; TEMP 36.8; O2SAT 100
[2024-09-08] MEDS: IBUPROFEN 400 MG TABLET 800 MG PO ×3 (01:26→20:29)
[2024-09-08] MEDS: ACETAMINOPHEN 500MG TAB 1000 MG PO (05:25)
[2024-09-08 05:27] VITALS: BP 112/72; PULSE 66; RESP 16; TEMP 36.7; O2SAT 100
[2024-09-08 08:00] VITALS: BP 122/78; PULSE 86; RESP 18; TEMP 36.6; O2SAT 100
[2024-09-08 08:33] LABS: Basophils % 0.3 % (0.1-2.0); Eosinophils # 0.1 Kmm3 (0.0-0.4); Eosinophils % 0.7 % (0.1-12.0); Hematocrit 35.1 % (37.0-47.0); Hemoglobin 11.7 g/dL (12.2-16.2); Immature Granulocytes # 0.05 10^3uL; Immature Granulocytes % 0.5 %; Lymphocytes # 1.4 K/mm3 (0.7-4.5); Lymphocytes % 13.4 % (10-50); Mean Corpuscular HGB Conc 33.3 g/dL (31.8-35.4); Mean Corpuscular Hemoglobin 28.8 pg (27.0-31.2); Mean Corpuscular Volume 86.5 fl (81-99); Monocytes # 0.4 K/mm3 (0.1-1.0); Neutrophils # 8.4 K/mm3 (1.8-7.8); Neutrophils % 81.1 % (37.0-80.0); Nucleated Red Blood Cells # 0 10^3/uL; Nucleated Red Blood Cells % 0 %; Platelet Count 115 K/mm3 (142-424); Red Blood Count 4.06 M/mm3 (4.20-5.40); Red Cell Distribution Width 13.2 % (11.5-17.5); Red Cell Distribution Width-SD 41.2 fL; White Blood Count 10.3 K/mm3 (4.8-10.8)
[2024-09-08] MEDS: SENNA 8.6MG TABLET 8.6 MG PO (08:43)
--- NOTE | 2024-09-08 10:51 | P.PN_ITS ---
Subjective *Date: 09/08/24 *Time: 10:51 Interval history: PPD # 1 s/p Feeling well. Pain controlled. Formula feeding. Lochia is appropriate. Voiding without difficulty and passing flatus. Tolerating regular diet. Denies fever/chills, chest pain and shortness of breath. No headaches, vision changes, lightheadedness/dizziness. No lower extremity swelling. Ambulating well ad fabiana. Medical Exam Vital signs and Labs for Last 24 Hours: Vital Signs Temp Pulse Resp BP Pulse Ox O2 Del Method 09/08/24 08:00 97.9 F 86 18 122/78 100 Room Air 09/08/24 05:27 98.0 F 66 16 112/72 100 Room Air 09/07/24 19:37 98.3 F 80 16 118/77 100 Room Air Laboratory Results - last 24 hr 09/07/24 03:07: RPR w/Rflx to Titer Nonreactive 09/08/24 08:12: WBC 10.3, RBC 4.06 L, Hgb 11.7 L, Hct 35.1 L, MCV 86.5, MCH 28.8, MCHC 33.3, RDW 13.2, Plt Count 115 L, MPV 11.0 H, Neut % (Auto) 81.1 H, Lymph % (Auto) 13.4, [place] % (Auto) 4.0, Eos % (Auto) 0.7, Baso % (Auto) 0.3, Neut # (Auto) 8.4 H, Lymph # (Auto) 1.4, [place] # (Auto) 0.4, Eos # (Auto) 0.1, Baso # (Auto) 0.0 I & O for Labs for Last 24 Hours: Intake & Output 09/05/24 09/06/24 09/07/24 09/08/24 23:59 23:59 23:59 23:59 Weight 148 lb Head: Present atraumatic and normocephalic ENT: Present normal exam Neck: Present normal inspection and full ROM Respiratory: Present CTA bilaterally and normal respiratory effort Cardiac: Present Reg Rate and Rhythm GI: Present soft; Absent tenderness Rectal (female): Present deferred (female): Present deferred Extremities: Present full ROM; Absent edema or calf tenderness Neuro: Present alert, awake and moves all extremities Assessment and Plan *Assessment and plan (1) Status post normal vaginal delivery: Status: Acute Category: Medical (2) Active labor: Status: Acute Category: Medical Plan Continue routine care Encouraged increased ambulation AM Hgb 11.7 Plan d/c home tomorrow, PPD # 2
[2024-09-08] MEDS: PRENATAL MULTIVITAMIN W/IRON 1 EACH PO (18:26)
[2024-09-08 20:31] VITALS: BP 114/81; PULSE 75; RESP 18; TEMP 36.7; O2SAT 100
[2024-09-09 04:11] VITALS: BP 110/79; PULSE 76; RESP 16; TEMP 36.8; O2SAT 100
--- NOTE | 2024-09-09 09:49 | EXP.DC.SUM ---
General Admission date:: 09/07/24 Discharge date: 09/09/24 HPI HPI HPI: Ms Chanelle Gamez is a 24 yo at 39w4d who presents to [facility] L&D with complaint of vaginal bleeding and contractions after intercourse. Vaginal bleeding started around 2230 last night. Upon arrival to L&D SVE /-2. She was monitored for an hour and repeat SVE /-2. Contractions were regular, every 2-4 minutes. GBS negative. She has had good care. She reports baby is very active. Hospital Course Hospital Course Hospital Course: Chanelle Gamez is a 24yo PPD#2 from a with MLE on 09/07/2024 at 1553. She delivered a live viable female , [place] with Apgars of 6 and 8 at 1 and 5 minutes. weighed 8lb 1oz. She has done well and has remained afebrile with her at her hospitalization. She is eating and drinking and ambulating. She is bottlefeeding. Her lochia is normal. She has A Rh+ blood, she is rubella immune and was group B streptococcus negative. She will be discharged home to follow-up with Dr. Summers in 2 weeks time. She will continue with her vitamins. She will take ibuprofen as well. She was given the usual instructions with respect to limiting her activity, driving and sexual activity. She was given instructions with respect to wound care. Her condition on discharge is stable and improved. Exam Data for Last 24 hours Vital signs and Labs for Last 24 Hours: Temp Pulse Resp BP Pulse Ox O2 Del Method 98.3 F 76 16 110/79 100 Room Air 09/09/24 04:11 09/09/24 04:11 09/09/24 04:11 09/09/24 04:11 09/09/24 04:11 09/09/24 04:11 I & O for Last 24 hours: Intake & Output 09/06/24 09/07/24 09/08/24 09/09/24 23:59 23:59 23:59 23:59 Weight 148 lb Narrative: General: patient is alert oriented in no acute distress and responds appropriately to questions. Appears to be in minimal pain. HEENT: NCAT, EOMI, moist mucous membranes, neck supple with full ROM Cardiovascular: RRR +S1/S2, no murmurs or rubs Pulmonary: Clear to auscultation bilaterally, nonlabored breathing, symmetric chest rise Abdominal: Fundus below the umbilicus, firm, and tenderness appropriate for the period. Extremities: trace edema, no tenderness or cyanosis noted Skin: Normal turgor, intact, warm. Negative for erythema, pallor, petechia, or lesions Neurologic: Negative for sensory or motor deficit Psychiatric: Normal affect, normal thought process, good judgment and insight, no depression or anxious mood appreciated. DS: Diagnosis Discharge Diagnosis (1) Status post normal vaginal delivery: Status: Acute (2) Active labor: Status: Acute Meds Home Medications and Allergies Home Medications ?Medication ?Instructions ?Recorded ?Confirmed ?Type vits no.126-ferrous fum 1 tab PO DAILY 01/30/24 09/07/24 History 28 mg iron-folic acid 800 mcg tablet (Classic ) famotidine 20 mg tablet 20 mg PO DAILY 07/15/24 09/07/24 History acetaminophen 500 mg tablet 500 mg PO Q6H PRN fever or pain 09/09/24 Rx #30 tabs ibuprofen 800 mg tablet 800 mg PO Q8H PRN pain #60 tabs 09/09/24 Rx sennosides 8.6 mg tablet (Senna 8.6 mg PO BIDP PRN Constipation 09/09/24 Rx Lax) #60 tabs New Prescriptions to Start Prescriptions: Bridgette Lan ibuprofen Bridgette Alexander sennosides [Senna Lax] Bridgette Alexander Allergies Allergy/AdvReac Type Severity Reaction Status Date / Time No Known Allergies Allergy Verified 08/31/24 15:59 Discharge Plan Disposition Patient Disposition: Home, Self-Care Condition: Good Discharge Order Discharge Orders: Discharge Order (Routine); Ordered 09/09/24 Ordered By: Bridgette Alexander Follow up Plan Follow up with: Sari Summers DO [Staff Physician, GERIATRIC CARE MANAGER] - 09/22/24 11:15 am Prescriptions/Medication Reconciliation: New acetaminophen 500 mg tablet 500 mg PO Q6H PRN (Reason: fever or pain) Qty: 30 3RF sennosides [Senna Lax] 8.6 mg Tablet 8.6 mg PO BIDP PRN (Reason: Constipation) Qty: 60 2RF ibuprofen 800 mg tablet 800 mg PO Q8H PRN (Reason: pain) Qty: 60 2RF Continued Classic 28 mg iron- 800 mcg tablet 1 tab PO DAILY famotidine 20 mg tablet 20 mg PO DAILY Problem Reconciliation Problems Reviewed?: Yes Patient Discharge Instructions ACTIVITY: Continue current activity DIET: continue same diet and regular diet Additional Instructions: Congratulations on the delivery of your sweet baby girl. It is my privilege to be a part of your GERIATRIC CARE MANAGER team. Discharge: -Take 800 mg Ibuprofen every 8 hours as needed for pain. You can also take 500-1000 mg of Tylenol in between doses, every 6-8 hours. -Colace can be taken 1-2 times per day as you need to soften your stool. Make sure to drink at least 8 cups of water per day. -Iron supplements can make you constipated. You can take iron tablets every other day if constipation is too bad. -Nothing in the vagina for 6 weeks - no intercourse, douching, tampons. No tub baths or swimming pools. -Do not lift greater than 20pounds for 2 weeks, this is the equivalent of 2 gallons of milk. -Reasons to return to L&D or call On-Call doctor - fever (greater than 100.4) - heavy vaginal bleeding (soaking through 1 pad in less than 2 hours or passing clots that are egg sized) - vaginal discharge (malodorous and/or purulent) - severe headaches, leg tenderness/edema, or any other symptoms that warrant immediate medical attention. depression/blues - Normal to feel anxious/overwhelmed for first 2 weeks - Talk to your doctor if: anxiety lasts over 2 weeks, trouble bonding with baby, withdrawing from other family members, thoughts of harming yourself or others Bridgette Alexander DO [facility] [phone] *Nothing in the Vagina for 6 weeks* *No strenuous activity* *No heavy lifting* *No tub baths until okay's by MD* Patient Instructions: Depression, Hemorrhage, DI for Labor and Delivery, Vaginal , DI for Pre-eclampsia Print Language: Citizen Of [place] Providers Primary Care Provider: Anton Hale Admit Provider: Sari Summers Attending Provider: Sari Summers
== END 2024-09-09 11:46 | disposition home or self-care (01) | DRG 807 ==
LOC: OBOUT 02:41 → OB 02:41
PROVIDERS: Admitting Provider Obstetrics & Gynecology; PCP Family Medicine; Visit Provider Obstetrics & Gynecology
DX: O69.81X0 Labor and delivery complicated by cord around neck, without compression, not applicable or unspecified (principal); Z37.0 Single live birth; O75.81 Maternal exhaustion complicating labor and delivery; O77.0 Labor and delivery complicated by meconium in amniotic fluid; Z3A.39 39 weeks gestation of pregnancy
CPT/HCPCS: 36415; 59025; 81001; 85025; 86592; 86850; 94761; J2795; J3010; J7120; J7121